=== PATIENT | female | born 1975 | race Caucasian/White ===

== ENCOUNTER 2019-11-30 14:13 | Inpatient (IN) | payer OTHER ==
[~2019-11-30] VITALS: Ht 162.6 cm; Wt 109.9 kg
--- NOTE | 2019-11-30 14:33 | NUR ---
PT C/O CRAMPY LLQ PAIN, LT FLANK PAIN, STARTED EARLIER TODAY. NO PAIN MEDS TAKEN. TOOK GAS-X, VOMITED AFTER. DENIES UTI SX. HX OVARIAN CYST RT FALOPEAN TUBE. LAST BM: TODAY. LAST ORAL INTAKE: TODAY, VOMITED AFTER. LMP: 3YRS - POST-MENOPAUSAL.
[2019-11-30] MEDS ORDERED: ATEN25TA PO (14:41)
[2019-11-30] MEDS ORDERED: BACL20TA PO (14:41)
--- NOTE | 2019-11-30 15:38 | NUR ---
ERP AT BS FOR EXAM
[2019-11-30] MEDS ORDERED: HYDROmorphone 1 MG/ML, 1ML INJ ONE ×2 (15:50→17:05)
[2019-11-30] MEDS ORDERED: ONDANSETRON 2MG/ML, 2ML ONE ×3 (15:51→23:20)
[2019-11-30] MEDS ORDERED: ONDANSETRON 2MG/ML, 2ML IVPush ONE ×3 (16:00→18:00)
[2019-11-30] MEDS ORDERED: SODIUM CHLORIDE 0.9% 1,000ML IVBOLUS ONE (16:00)
[2019-11-30] MEDS ORDERED: SODIUM CHLORIDE FLUSH 10ML SYR IVF ONE (16:00)
[2019-11-30] MEDS: HYDROmorphone 2 MG/ML, 1ML IVPush PRN ×2 (16:14→17:13)
--- NOTE | 2019-11-30 16:15 | NUR ---
PIV INITIATED, NS HUNG, ZOFRAN AND DILAUDID GIVEN PER EMAR.
--- NOTE | 2019-11-30 16:16 | NUR ---
PT REMINDED OF NEED FOR URINE SPECIMEN.
[2019-11-30 16:17] LABS: MEAN CORPUSCULAR HEMOGLOBIN 29.1 pg (27.0-34.8); MEAN CORPUSCULAR HGB CONC 33.2 g/dL (32.4-35.8); MEAN CORPUSCULAR VOLUME 87.7 fL (80-100); MEAN PLATELET VOLUME 9.4 fL (7.4-10.4); PLATELET COUNT 272 x10^3/uL (130-400); RED BLOOD COUNT 5.56 x10^6/uL (3.82-5.3); RED CELL DISTRIBUTION WIDTH 13.2 % (9.6-15.2)
[2019-11-30 16:27] LABS: CHLORIDE 106 mmol/L (98-107)
[2019-11-30 16:48] LABS: BASOPHILS # (AUTO) 0.02 x10^3/uL (0-0.1); BASOPHILS % (AUTO) 0 % (0-1); EOSINOPHILS # (AUTO) 0.07 x10^3/uL (0-0.4); EOSINOPHILS % (AUTO) 1 % (1-7); LYMPHOCYTES # (AUTO) 2.07 x10^3/uL (1-3.4); LYMPHOCYTES % (AUTO) 14 % (22-44); MD SCAN; MONOCYTES # (AUTO) 0.37 x10^3/uL (0.2-0.8); MONOCYTES % (AUTO) 2 % (2-9); NEUTROPHILS # (AUTO) 12.85 x10^3/uL (1.8-6.8); NEUTROPHILS % (AUTO) 84 % (42-75)
[2019-11-30 16:58] LABS: ALANINE AMINOTRANSFERASE 53 U/L (12-78); BILIRUBIN,TOTAL 0.4 mg/dL (0.2-1.0)
[2019-11-30 16:59] LABS: ANION GAP 8 mmol/L (5-15); CALCIUM 9.4 mg/dL (8.5-10.1)
[2019-11-30 17:01] LABS: ALKALINE PHOSPHATASE 100 U/L (45-117); TOTAL PROTEIN 8.4 g/dL (6.4-8.2)
--- NOTE | 2019-11-30 17:15 | NUR ---
PT BACK FROM CT. PT C/O 01/10 PAIN AND ACTIVELY VOMITTING. VERBAL ORDER RECEIVED FROM MD FOR ZOFRAN 4MG IV ONCE. PAIN MEDS AND ZOFRAN ADMIN PER JUN. PT AMBULATED TO RESTROOM WITH STEADY GAIT TO PROVIDE URINE SAMPLE. UA COLLECTED AND SENT TO LAB.
--- NOTE | 2019-11-30 17:27 | NUR ---
PT REPORT FROM BREAK MARY ALMENDAREZ. PT CARE TO BE RESUMED.
[2019-11-30 17:44] LABS: MICROSCOPIC INDICATED
[2019-11-30] MEDS ORDERED: KETOROLAC 30 MG/1 ML IVPush ONE (18:00)
[2019-11-30] MEDS ORDERED: KETOROLAC 30 MG/1 ML ONE (18:17)
--- NOTE | 2019-11-30 19:18 | NUR ---
CALLED UNIT, RECEIVING RN UNAVAILABLE
--- NOTE | 2019-11-30 19:26 | NUR ---
PT REPORT TO ERICKSON HOOD FOR ROOM [id number]
[2019-11-30 20:00] VITALS: BP 108/70
[2019-11-30] MEDS ORDERED: ONDANSETRON 2MG/ML, 2ML IVPush PRN (20:00)
[2019-11-30] MEDS ORDERED: CEFTRIAXONE PMX 1GM/50ML 50 ML IV SCH (20:00)
[2019-11-30] MEDS ORDERED: BACLOFEN 10 MG TABLET PO PRN (20:00)
[2019-11-30] MEDS ORDERED: morphine SULFATE 10 MG/ML, 1ML IVPush PRN (20:00)
[2019-11-30] MEDS ORDERED: hydrALAzine 20 MG/ML, 1ML IVPush PRN (20:00)
[2019-11-30] MEDS ORDERED: ACETAMINOPHEN 325 MG TABLET PO PRN (20:00)
[2019-11-30] MEDS: LACTATED RINGERS 1,000 ML IV SCH (20:39)
[2019-11-30] MEDS: HYDROcodone/APAP 5/325 TABLET PO PRN ×2 (20:59→21:27)
[2019-11-30] MEDS ORDERED: LACTATED RINGERS 1,000 ML IVBOLUS ONE (22:30)
[2019-11-30 22:40] LABS: HCG UR SG 1.031 (1.003-1.030)
[2019-11-30] MEDS ORDERED: FENTANYL PF 100 MCG/2ML ONE (23:14)
[2019-11-30] MEDS ORDERED: MIDAZOLAM 1 MG/ML, 2ML ONE (23:14)
[2019-11-30] MEDS ORDERED: DEXAMETHASONE 4 MG/ML, 1ML ONE (23:20)
[2019-11-30] MEDS ORDERED: ROCURONIUM 10 MG/ML,10ML ONE (23:20)
[2019-11-30] MEDS ORDERED: PROPOFOL 10 MG/ML, 100ML IV ONE (23:20)
[2019-11-30] MEDS ORDERED: SUCCINYLCHOLINE 20 MG/ML, 10ML ONE (23:20)
[2019-11-30] MEDS ORDERED: SUGAMMADEX 200 MG/2 ML IVPush ONE (23:20)
[2019-12-01] MEDS ORDERED: PROMETHAZINE 25 MG/ML, 1ML IVPush PRN (00:30)
[2019-12-01] MEDS ORDERED: OXYcodone 5 MG/5 ML ORAL.SOL UDC PO PRN (00:30)
[2019-12-01] MEDS ORDERED: FENTANYL PF 100 MCG/2ML IV PRN (00:30)
[2019-12-01] MEDS ORDERED: HYDROmorphone 1 MG/ML, 1ML INJ IVPush PRN (00:30)
[2019-12-01] MEDS ORDERED: MEPERIDINE/PF 25MG/0.5ML IVPush PRN (00:30)
[2019-12-01] MEDS ORDERED: KETOROLAC 30 MG/1 ML IVPush PRN (00:30)
[2019-12-01] MEDS ORDERED: HYDROcodone/APAP 7.5-325MG/15ML UDC PO PRN (00:30)
[2019-12-01] MEDS ORDERED: OXYcodone 5 MG/5 ML ORAL.SOL UDC ONE (00:35)
[2019-12-01] MEDS ORDERED: KETOROLAC 30 MG/1 ML ONE (00:35)
[2019-12-01] MEDS: KETOROLAC 30 MG/1 ML IV PRN ×4 (00:38→19:56)
[2019-12-01 01:00] VITALS: BP 109/63
[2019-12-01 03:53] VITALS: BP 115/73
[2019-12-01] MEDS: HYDROcodone/APAP 5/325 TABLET PO PRN ×4 (04:37→21:06)
[2019-12-01 05:49] LABS: MEAN CORPUSCULAR VOLUME 87.8 fL (80-100); MEAN PLATELET VOLUME 9.2 fL (7.4-10.4); PLATELET COUNT 230 x10^3/uL (130-400); RED BLOOD COUNT 4.98 x10^6/uL (3.82-5.3); RED CELL DISTRIBUTION WIDTH 13.2 % (9.6-15.2)
[2019-12-01 05:54] LABS: ANION GAP 6 mmol/L (5-15); CHLORIDE 107 mmol/L (98-107)
[2019-12-01 05:55] LABS: CREATININE 1.09 mg/dL (0.55-1.02)
[2019-12-01] MEDS: LACTATED RINGERS 1,000 ML IV SCH ×3 (05:58→21:07)
[2019-12-01 06:57] LABS: BASOPHILS # (AUTO) 0.06 x10^3/uL (0-0.1); BASOPHILS % (AUTO) 0 % (0-1); EOSINOPHILS % (AUTO) 0 % (1-7); LYMPHOCYTES % (AUTO) 7 % (22-44); MD SCAN; MONOCYTES # (AUTO) 0.09 x10^3/uL (0.2-0.8); MONOCYTES % (AUTO) 1 % (2-9); NEUTROPHILS # (AUTO) 17.84 x10^3/uL (1.8-6.8); NEUTROPHILS % (AUTO) 92 % (42-75)
[2019-12-01 07:34] VITALS: BP 115/75
[2019-12-01] MEDS: SENNA/DOCUSATE TABLET PO SCH (08:39)
[2019-12-01] MEDS: ATENOLOL 25 MG TABLET PO SCH (08:40)
[2019-12-01] MEDS ORDERED: TAMSULOSIN 0.4 MG CAP.ER.24H PO SCH (09:00)
[2019-12-01] MEDS ORDERED: PHARMACY MAY ADJ FOR RENAL FX MC PRN (09:30)
[2019-12-01] MEDS: PHENAZOPYRIDINE 100 MG TABLET PO PRN ×2 (10:53→17:00)
[2019-12-01 19:09] VITALS: BP 113/75
[2019-12-01] MEDS: CEFTRIAXONE PMX 1GM/50ML 50 ML IV SCH (21:05)
[2019-12-02 01:30] VITALS: BP 133/84
[2019-12-02] MEDS: KETOROLAC 30 MG/1 ML IV PRN ×3 (01:36→18:45)
[2019-12-02] MEDS: HYDROcodone/APAP 5/325 TABLET PO PRN ×5 (01:36→20:14)
[2019-12-02] MEDS: LACTATED RINGERS 1,000 ML IV SCH ×2 (05:30→20:50)
[2019-12-02 06:36] LABS: ANION GAP 5 mmol/L (5-15); CALCIUM 9.2 mg/dL (8.5-10.1); CHLORIDE 107 mmol/L (98-107); CREATININE 0.87 mg/dL (0.55-1.02)
[2019-12-02 06:59] LABS: MEAN CORPUSCULAR HEMOGLOBIN 29.2 pg (27.0-34.8); MEAN CORPUSCULAR HGB CONC 32.9 g/dL (32.4-35.8); MEAN CORPUSCULAR VOLUME 88.8 fL (80-100); MEAN PLATELET VOLUME 9.1 fL (7.4-10.4); PLATELET COUNT 224 x10^3/uL (130-400); RED BLOOD COUNT 4.63 x10^6/uL (3.82-5.3); RED CELL DISTRIBUTION WIDTH 13.4 % (9.6-15.2)
[2019-12-02 07:00] VITALS: BP 119/78
[2019-12-02 07:44] LABS: BASOPHILS % (AUTO) 1 % (0-1); EOSINOPHILS # (AUTO) 0.05 x10^3/uL (0-0.4); EOSINOPHILS % (AUTO) 0 % (1-7); LYMPHOCYTES % (AUTO) 30 % (22-44); MD SCAN; MONOCYTES # (AUTO) 0.68 x10^3/uL (0.2-0.8); MONOCYTES % (AUTO) 5 % (2-9); NEUTROPHILS # (AUTO) 7.93 x10^3/uL (1.8-6.8); NEUTROPHILS % (AUTO) 64 % (42-75)
[2019-12-02] MEDS: CEFTRIAXONE PMX 1GM/50ML 50 ML IV SCH ×2 (08:29→20:51)
[2019-12-02] MEDS: ATENOLOL 25 MG TABLET PO SCH (08:29)
[2019-12-02] MEDS: SENNA/DOCUSATE TABLET PO SCH (08:29)
[2019-12-02] MEDS ORDERED: ATENOLOL 50 MG TABLET ONE (08:30)
[2019-12-02] MEDS ORDERED: TAMSULOSIN 0.4 MG CAP.ER.24H PO ONE (10:00)
[2019-12-02 13:15] VITALS: BP 114/80
[2019-12-02 19:32] VITALS: BP 130/86
[2019-12-03] MEDS: KETOROLAC 30 MG/1 ML IV PRN ×2 (00:31→06:25)
[2019-12-03] MEDS: HYDROcodone/APAP 5/325 TABLET PO PRN ×2 (00:32→04:30)
[2019-12-03 01:08] VITALS: BP 106/70
[2019-12-03 05:53] LABS: CHLORIDE 108 mmol/L (98-107)
[2019-12-03 05:58] LABS: BASOPHILS # (AUTO) 0.05 x10^3/uL (0-0.1); BASOPHILS % (AUTO) 1 % (0-1); EOSINOPHILS # (AUTO) 0.21 x10^3/uL (0-0.4); EOSINOPHILS % (AUTO) 2 % (1-7); LYMPHOCYTES # (AUTO) 3.78 x10^3/uL (1-3.4); LYMPHOCYTES % (AUTO) 38 % (22-44); MD NO; MEAN CORPUSCULAR HEMOGLOBIN 29.3 pg (27.0-34.8); MEAN CORPUSCULAR HGB CONC 33.3 g/dL (32.4-35.8); MEAN CORPUSCULAR VOLUME 88.1 fL (80-100); MEAN PLATELET VOLUME 9.5 fL (7.4-10.4); MONOCYTES # (AUTO) 0.59 x10^3/uL (0.2-0.8); MONOCYTES % (AUTO) 6 % (2-9); NEUTROPHILS # (AUTO) 5.21 x10^3/uL (1.8-6.8); NEUTROPHILS % (AUTO) 53 % (42-75); PLATELET COUNT 216 x10^3/uL (130-400); RED BLOOD COUNT 4.47 x10^6/uL (3.82-5.3); RED CELL DISTRIBUTION WIDTH 12.8 % (9.6-15.2)
[2019-12-03 06:00] LABS: ANION GAP 6 mmol/L (5-15); CALCIUM 8.6 mg/dL (8.5-10.1); CREATININE 0.78 mg/dL (0.55-1.02)
[2019-12-03 07:30] VITALS: BP 128/87
[2019-12-03] MEDS ORDERED: HYDR-3237 PO (08:11)
[2019-12-03] MEDS ORDERED: LEVO750T6 PO (08:11)
[2019-12-03] MEDS: CEFTRIAXONE PMX 1GM/50ML 50 ML IV SCH (08:23)
[2019-12-03] MEDS: SENNA/DOCUSATE TABLET PO SCH (08:23)
[2019-12-03] MEDS: ATENOLOL 25 MG TABLET PO SCH (08:24)
[2019-12-03] MEDS: LACTATED RINGERS 1,000 ML IV SCH (10:35)
[2019-12-03 11:22] VITALS: BP 158/88
== END 2019-12-03 11:30 | disposition home or self-care (01) | DRG 854 ==
LOC: ED 15:09 → OBSVTOIN 17:46 → EDIP 17:46 → INTOOBSV 17:46 → 4NE 20:05 → DCLOUNGE 12-03 11:27
PROVIDERS: ADMIT Internal Medicine; ATTEND Internal Medicine
PROC: 0T778DZ Dilation of Left Ureter with Intraluminal Device, Via Natural or Artificial Opening Endoscopic (ICD-10-PCS; principal; 2019-11-30 22:30)
DX: A41.9 Sepsis, unspecified organism (principal); N11.1 Chronic obstructive pyelonephritis; N13.2 Hydronephrosis with renal and ureteral calculous obstruction; Z68.41 Body mass index [BMI] 40.0-44.9, adult; Z20.828 Contact with and (suspected) exposure to other viral communicable diseases; E66.01 Morbid (severe) obesity due to excess calories; E78.5 Hyperlipidemia, unspecified; E86.0 Dehydration; I10 Essential (primary) hypertension; G43.909 Migraine, unspecified, not intractable, without status migrainosus; F17.210 Nicotine dependence, cigarettes, uncomplicated; D72.829 Elevated white blood cell count, unspecified; Z80.1 Family history of malignant neoplasm of trachea, bronchus and lung; Z90.49 Acquired absence of other specified parts of digestive tract; Z79.899 Other long term (current) drug therapy
CPT/HCPCS: 36415; 74018; 74176; 76000; 80048; 80053; 81001; 81025; 83036; 83605; 85025; 87040; 87086; 87635; G0378; J0696; J1100; J1170; J1885; J2250; J2405; J2704; J3010; C1758; C1769; C2617; J0330; J7030; J7120